=== PATIENT | male | born 1990 | race Caucasian/White ===

== ENCOUNTER 2021-02-08 22:23 | Emergency (ER) | payer OTHER ==
[2021-02-09] MEDS ORDERED: ATARAX25 MG PO (00:21)
[2021-02-09] MEDS ORDERED: PREDNISONE 20MG20 MG PO (00:21)
== END 2021-02-09 00:35 | disposition home or self-care (01) ==
LOC: FER 22:23
DX: T78.40XA Allergy, unspecified, initial encounter (principal); X58.XXXA Exposure to other specified factors, initial encounter
CPT/HCPCS: 96372; J0171; J1200; J2930

== ENCOUNTER 2021-02-11 10:09 | Emergency (ER) | payer OTHER ==
[~2021-02-11 10:09] MED LIST: ATARAX25 MG PO; PREDNISONE 20MG20 MG PO
[2021-02-11] MEDS ORDERED: PEPCID AC20 MG PO (14:53)
[2021-02-11] MEDS ORDERED: PREDNISONE20 MG PO (14:53)
[2021-02-11] MEDS ORDERED: BENADRYL25 M1 PO (14:53)
== END 2021-02-11 15:04 | disposition home or self-care (01) ==
LOC: FER 10:09
DX: L50.9 Urticaria, unspecified (principal); Z88.2 Allergy status to sulfonamides; Z79.899 Other long term (current) drug therapy
CPT/HCPCS: J1200; J2930